=== PATIENT | female | born 1975 | race Caucasian/White ===

== ENCOUNTER 2020-05-20 14:55 | Outpatient (CLI) | payer OTHER, SELFPAY ==
[2020-05-20 15:35] LABS: Hematocrit 34.8 % (37.0-47.0); Hemoglobin 11.5 g/dL (12.0-15.0)
== END 2020-05-20 14:56 | disposition home or self-care (01) ==
LOC: ANHSURGERY 14:57
PROVIDERS: Visit Provider Obstetrics & Gynecology
DX: N92.0 Excessive and frequent menstruation with regular cycle (principal)
CPT/HCPCS: 36415; 85014; 85018

== ENCOUNTER 2020-05-25 01:14 | Outpatient (CLI) | payer OTHER, SELFPAY ==
[2020-05-25 18:19] LABS: SARS-CoV-2 RNA PCR Negative
== END 2020-05-25 01:15 | disposition home or self-care (01) ==
LOC: ANHCOVIDDT 01:14
PROVIDERS: Visit Provider Obstetrics & Gynecology
DX: Z01.812 Encounter for preprocedural laboratory examination (principal); Z20.828 Contact with and (suspected) exposure to other viral communicable diseases
CPT/HCPCS: 87635; C9803; U0003

== ENCOUNTER 2020-05-27 01:31 | Day surgery (SDC) | payer OTHER, SELFPAY ==
[2020-05-18 15:42] VITALS: BMI 27.9
--- NOTE | 2020-05-25 08:03 | PM.IMHP ---
H&P: HPI History of Present Illness Date/Time: 05/25/20 08:03 Chief complaint: Heavy Bleeding Narrative: Brittani Rashid is a 44 year old female is admitted for hysteroscopy, dilatation curettage, and endometrial ablation. Or she has been on oral contraceptive which has not helped her heaviness to periods. She opts for ablation. Risks and benefits reviewed Review of Systems Review of Systems: All systems reviewed & are unremarkable except as noted in HPI and below PMFSH Social History Social History Smoking status: Never smoker Alcohol intake: current Drinks per week: 3 Spiritual care concerns: No Meds Home Medications and Allergies Home Medications Medication Instructions Recorded Confirmed Type norethin-e.estradiol triphasic 1 tablet PO QPM 05/18/20 05/18/20 History [Pirmella] Allergies Allergy/AdvReac Type Severity Reaction Status Date / Time No Known Allergies Allergy Mild Unverified 05/18/20 15:43 Exam Const: General: no acute distress Eyes: General: appearance normal, both eyes and all related structures Neck: Neck: supple and no JVD Thyroid: thyroid normal Resp: Effort & Inspection: normal respiratory effort Auscultation: clear to auscultation bilaterally Cardio: Rate: regular rate Rhythm: regular rhythm GI: Inspection: non-distended GI Palp: Yes Soft to palpation, No Tenderness to palpation present (GI) and No Guarding due to palpation present (GI) Auscultation: normal bowel sounds : General: Yes bladder normal to palpation External Female Exam: normal external appearance Speculum Exam - Vagina: normal vaginal discharge and No vaginal bleeding Speculum Exam - Cervix: nontender Bimanual exam- vagina & uterus: bladder normal to palpation and No Cervical tenderness present OB/external & speculum: No vaginal bleeding Skin: General skin exam: no rashes or lesions noted Extrem: General: normal to inspection and no edema Psych: Mental Status: mental status grossly normal Affect: normal affect Assessment and Plan Additional Plan impression: Excessive heavy bleeding refractory to medical therapy Plan: Hysteroscopy/dilatation curettage / ablation
--- NOTE | 2020-05-26 12:06 | P.PNAN_ITS ---
Anes - Initial Pre Proc Eval Procedure: Operation Date: 05/27/20 10:30 Proposed Procedures p Hysteroscopy, Dilation And Curettage, Radha Endometrial Ablation - Santhosh Escamilla MD Date/Time: 05/26/20 12:06 Surgeon: Santhosh Escamilla MD Pre Op Diagnosis: Heavy Bleeding Patient Data Age: 44 Gender: F Height: 1.65 m Weight: 76.2 kg Allergies Allergy/AdvReac Type Severity Reaction Status Date / Time No Known Allergies Allergy Mild Unverified 05/27/20 09:04 Home Medications Medication Instructions Recorded Confirmed Type norethin-e.estradiol triphasic 1 tablet PO QPM 05/18/20 05/18/20 History [Pirmella] hydrocodone-acetaminophen [[place]] 1 tablet PO Q4H PRN #30 tablet 05/27/20 Rx Patient hx anesthesia problems: none Family hx anesthesia problems: none [facility] Surgical History Surgical History (Updated 05/26/20 @ 12:06 by Rudy Michel DO) History of appendectomy History of hernia repair Hx of LASIK Social History Social History Smoking status: Never smoker Alcohol intake: current Drinks per week: 3 Spiritual care concerns: No Anes - Eval Final PreProcedure Day of Procedure 05/26/20 12:06 Patient weight: overweight Heart: regular rate and rhythm Lungs: clear to auscultation and normal air movement Airway: Mallampati scale class II Neurological: alert and oriented Last oral intake: >/= 8 hours ASA classification: I Emergent: no Anesthetic plan: proceed Anesthesia type and monitoring: general GIVS and standard monitoring Informed Consent: The patient's anesthetic plan and its attendant risks and benefits were discussed with the patient/family/POA. Questions were solicited and answers provided to the satisfaction of the patient/family/POA.
--- NOTE | 2020-05-27 06:21 | WPDHPUPDATE1 ---
History and Physical Update Update Date/Time: 05/27/20 06:21 History and Physical has been reviewed, including an updated exam of the patient. There are NO changes in the patient's condition. Risks, benefits, and alternatives have been discussed and questions answered. Patient agrees to proceed with procedure.
[2020-05-27] MEDS: ACETAMINOPHEN 500 MG TABLET 1000 MG PO (08:50)
[2020-05-27] MEDS: LACTATED RINGERS 1,000 ML 30 ML IV CONT (08:55)
[2020-05-27 09:10] VITALS: BP 138/94; PULSE 87; RESP 16; TEMP 36.6; O2SAT 100
--- NOTE | 2020-05-27 10:30 | PM.PROC ---
Procedure Note - Detailed Date of procedure: 05/27/20 Pre-op diagnosis: Heavy Bleeding Surgeon: Santhosh Escamilla MD Postop diagnosis: Heavy bleeding and uterine fibroids Procedure: Hysteroscopy / dilatation curettage/ endometrial ablation EBL: 5Cc anesthesia: IV sedation and local Complications: None Findings: Uterus sounded to 10cm irregularly shaped endometrial canal with suspected fibroid Description of procedure: Patient was prepped draped in the normal sterile fashion and placed in the dorsal lithotomy position. Under excellent IV sedation weighted speculum was placed in posterior fornix of vagina. Anterior lip of the cervix was grasped with a single-tooth tenaculum. 2.5cc of xylocaine anesthesia was placed at 2, 4, 8, 10:00 a.m. of the cervix. The uterus sounded to 10cm. Serial dilatation with fragmented dilators performed followed by passage of the 5mm visualizing hysteroscope. Normal saline was used as visualizing medium. Irregularly shaped anterior portion of the uterus was seen consistent with a fibroid on the muscle. The uterus was then scraped over the entire 360? until a good grating sound was heard. The samir instrument was placed in the uterus and burned for 120seconds. The instruments removed and blood loss was estimated at5cc. All sponge, needle, instrument counts were correct. There were no immediate complications
[2020-05-27 10:34] VITALS: BP 160/94; PULSE 79; RESP 16; O2SAT 100
[2020-05-27 11:00] VITALS: BP 142/91; PULSE 67; RESP 14
[2020-05-27 11:20] VITALS: BP 134/77; PULSE 66; RESP 14
== END 2020-05-27 11:25 | disposition home or self-care (01) ==
PROVIDERS: Visit Provider Obstetrics & Gynecology
PROC: 0U5B8ZZ Destruction of Endometrium, Via Natural or Artificial Opening Endoscopic (ICD-10-PCS; CPT 58563; principal; 2020-05-27 10:30)
DX: N92.0 Excessive and frequent menstruation with regular cycle (principal)
CPT/HCPCS: 58563; 88305; A9270; J2250; J2405; J2704; J3010; J7030; J7120

== ENCOUNTER → 2021-02-07 01:11 | Outpatient (CLI) | payer OTHER, SELFPAY ==
[2021-02-07 18:55] LABS: SARS-CoV-2 RNA PCR Negative
== END ==
PROVIDERS: Visit Provider Obstetrics & Gynecology
DX: Z01.812 Encounter for preprocedural laboratory examination (principal); Z20.822 Contact with and (suspected) exposure to COVID-19
CPT/HCPCS: C9803; U0003; U0005

== ENCOUNTER 2021-02-07 08:28 | Outpatient (CLI) | payer OTHER, SELFPAY ==
[2021-02-07 09:14] LABS: Basophils Percent Auto 0.2 % (0.2-1.2); Eosinophils Absolute Auto 0.2 K/mm3 (0-0.3); Eosinophils Percent Auto 2.7 % (0-4.4); Hematocrit 36.2 % (37.0-47.0); Hemoglobin 11.9 g/dL (12.0-15.0); Immature Granulocyte Absolute 0.02 K/mm3 (0.00-0.031); Immature Granulocyte Percent A 0.3 % (0-0.5); Lymphocytes Absolute Auto 1.23 K/mm3 (0.9-3.2); Lymphocytes Percent Auto 18.5 % (18.3-44.2); Mean Corpuscular HGB Conc 32.9 g/dl (32-36); Mean Corpuscular Hemoglobin 30.1 pg (26-34); Mean Corpuscular Volume 91.6 fl (80-100); Mean Platelet Volume 8.8 fl (7.4-10.4); Monocytes Absolute Auto 0.4 K/mm3 (0.1-0.6); Monocytes Percent Auto 5.3 % (2.6-8.5); Neutrophils Absolute Auto 4.9 K/mm3 (1.3-6.7); Platelet Count Result 440 k/mm3 (150-375); Red Blood Count 3.95 M/mm3 (4.2-5.4); Red Cell Distribution Width 12.8 % (11.5-14.5); White Blood Count 6.7 K/mm3 (4.5-10.0)
== END 2021-02-07 08:29 | disposition home or self-care (01) ==
PROVIDERS: Visit Provider Obstetrics & Gynecology
DX: N85.2 Hypertrophy of uterus (principal); Z01.818 Encounter for other preprocedural examination
CPT/HCPCS: 36415; 85025; 86850; 86900; 86901

== ENCOUNTER 2021-02-10 06:04 | Day surgery (SDC) | payer OTHER, SELFPAY ==
[2021-02-02 14:51] VITALS: BMI 28.3
--- NOTE | 2021-02-07 12:55 | PM.IMHP ---
H&P: HPI History of Present Illness Date/Time: 02/07/21 12:55 45-year-old 3 para 3 status post uterine ablation admitted for hysterectomy and bilateral salpingectomy. This patient has a history of very heavy periods with known fibroids. She has also had multiple abnormal Paps and has asked for definitive therapy. Risks and benefits reviewed including but not exclusive of , aspiration pneumonia, bleeding, transfusion, perforation injury to bowel, bladder, ureters, or other internal organs with need for open laparotomy. She received the [employer] handout entitled hysterectomy as well as advance she handout. She had all questions answered and asked to proceed Chief Complaint: pelvic pain / enlarged uterus / failed ablation / abnormal Paps Review of Systems Review of Systems: All systems reviewed & are unremarkable except as noted in HPI and below [facility] Surgical History Surgical History History of appendectomy History of hernia repair Hx of LASIK Social History Social History Smoking status: Never smoker Alcohol intake: current Drinks per week: 4 Substance use: never Substance use type: does not use Spiritual care concerns: No Meds Home Medications and Allergies Home Medications Medication Instructions Recorded Confirmed Type norethin-e.estradiol triphasic 1 tablet PO HS 02/02/21 02/02/21 History [Pirmella] Allergies Allergy/AdvReac Type Severity Reaction Status Date / Time No Known Allergies Allergy Mild Unverified 02/02/21 14:50 Exam Const: General: no acute distress Eyes: General: appearance normal, both eyes and all related structures Neck: Neck: supple and no JVD Thyroid: thyroid normal Resp: Effort & Inspection: normal respiratory effort Auscultation: clear to auscultation bilaterally Cardio: Rate: regular rate Rhythm: regular rhythm GI: Inspection: non-distended GI Palp: Yes Soft to palpation, No Tenderness to palpation present (GI) and No Guarding due to palpation present (GI) Auscultation: normal bowel sounds : External Female Exam: normal external appearance Speculum Exam - Vagina: normal appearance of the vagina Speculum Exam - Cervix: Cervical os closed Bimanual exam- vagina & uterus: enlarged and Uterine tenderness Bimanual Exam- Adnexa, other: normal adnexae Skin: General skin exam: no rashes or lesions noted Extrem: General: normal to inspection and no edema Psych: Mental Status: mental status grossly normal Affect: normal affect Assessment and Plan Additional Plan impression: Symptomatic uterine fibroids with resultant heavy bleeding and abnormal Paps and dysmenorrhea refractory to medical therapy Plan: Robotic total vaginal hysterectomy and bilateral salpingectomy
[2021-02-10] VITALS (10 sets, daily range): BP systolic 116–151; BP diastolic 69–93; PULSE 62–95; RESP 14–16; TEMP 36.4–37.4; O2SAT 94–100; BMI 29.0
--- NOTE | 2021-02-10 05:56 | WPDHPUPDATE1 ---
History and Physical Update Update Date/Time: 02/10/21 05:56 History and Physical has been reviewed, including an updated exam of the patient. There are NO changes in the patient's condition. Risks, benefits, and alternatives have been discussed and questions answered. Patient agrees to proceed with procedure.
[2021-02-10] MEDS: ACETAMINOPHEN 500 MG TABLET 1000 MG PO (06:30)
[2021-02-10] MEDS: LACTATED RINGERS 1,000 ML 30 ML IV CONT ×2 (06:30→08:50)
[2021-02-10] MEDS: KETOROLAC 15 MG/ML VIAL (*BKC) IV PUSH (06:41)
--- NOTE | 2021-02-10 06:49 | WPDANESEPPF ---
Anes - Initial Pre Proc Eval Procedure: Operation Date: 02/10/21 07:30 Proposed Procedures p Robotic Assisted Total Vaginal Hysterectomy with Bilateral Salpingectomy - Santhosh Escamilla MD Date/Time: 02/10/21 06:49 Surgeon: Santhosh Escamilla MD Pre Op Diagnosis: pain, enlarge uterus,firboids,hx of abn pap,bleedi Patient Data Age: 45 Gender: F Height: 5 ft 5 in Weight: 77.1 kg Allergies Allergy/AdvReac Type Severity Reaction Status Date / Time No Known Allergies Allergy Mild Unverified 02/10/21 06:28 Home Medications Medication Instructions Recorded Confirmed Type norethin-e.estradiol triphasic 1 tablet PO HS 02/02/21 02/10/21 History [Pirmella] hydrocodone-acetaminophen 1 tablet PO Q4H PRN #30 tablet 02/10/21 Rx Patient hx anesthesia problems: none Family hx anesthesia problems: none PMFSH Surgical History Surgical History History of appendectomy History of hernia repair Hx of LASIK Social History Social History Smoking status: Never smoker Alcohol intake: current Drinks per week: 4 Substance use: never Substance use type: does not use Living arrangements: with family Spiritual care concerns: No Anes - Eval Final PreProcedure Day of Procedure 02/10/21 06:49 Patient weight: overweight Heart: regular rate and rhythm Lungs: clear to auscultation Airway: Mallampati scale class II Neurological: alert and oriented Last oral intake: >/= 8 hours ASA classification: II Emergent: no Anesthetic plan: proceed Anesthesia type and monitoring: general ETT and standard monitoring Informed Consent: The patient's anesthetic plan and its attendant risks and benefits were discussed with the patient/family/POA. Questions were solicited and answers provided to the satisfaction of the patient/family/POA.
[2021-02-10] MEDS: ceFAZolin 2 GM/D5W 50 ML 2 GM/50 ML BAG IVPB (07:38)
--- NOTE | 2021-02-10 08:39 | P.OP_ITS ---
Procedure Note - Detailed Date of procedure: 02/10/21 Pre-op diagnosis: pain, enlarge uterus,firboids,hx of abn pap,bleedi Surgeon: Santhosh Escamilla MD Postop diagnosis: Pelvic pain/enlarged uterus/fibroids/abnormal Pap smears/bleeding Procedure: Robotic total vaginal hysterectomy and bilateral salpingectomies Anesthesia: General endotracheal EBL: 5cc Findings: Markedly enlarged fibroid uterus. Normal-appearing ovaries and tubes bilaterally. Complications: None Description of procedure: The patient was prepped and draped in normal sterile fashion and placed in the dorsal lithotomy position. Under excellent general trach anesthesia weighted speculum placed in posterior fornix vagina. Anterior lip of the cervix grasped with a single-tooth tenaculum and the uterus sounded to 10cm. Serial dilatation with fragmented dilators performed followed by passage of a 8. SHARON and the 3. And a half cold cup. A 16 [place] catheter was placed in the bladder and drained of clear urine. The weighted speculum was removed. The gloves were changed. A supraumbilical incision made the Veress needle passed in the abdomen. The abdomen filled with CO2 gas 15 minutes was mercury. The 8mm trocar advanced in the abdomen. The downside visualized no injury seen. The gas reattached the patient placed in Trendelenburg. Right and left lateral quadrant incisions were made in the 8mm trocars advanced under direct visualization. Mesh could see be seen at the right upper quadrant and decision was made for the promotions assistant sales marketing port to be placed in the left upper quadrant. An 8mm trocar was advanced under direct visualization assuring no injury. The robot was docked. Attention was turned to the console. The left round ligament was grasped, burned, cut. Anteriorly a bladder flap was formed by sharply dissecting the bladder away from the uterus caudally to the opposite round ligament was clamped, burned, cut. Uterus was large and irregular. The left fallopian tube was then sharply dissected away from the ovarian complex in left attached to the uterus. This was repeated on the contralateral side to remove the right ovary. The left utero-ovarian ligament was skeletonized next. This was clamped, burned, cut. This was brought to the level of the previously cut round ligament. In like fashion conserving the right ovary the utero-ovarian ligament was clamped, burned, cut and brought to the level of the previously cut round ligament. The cardinal and broad ligaments on the left were then serially skeletonized and brought down laterally along each edge of the uterus and cervix into the uterine vessels could be seen on the left. These were noted to be large and tortuous in these were individually clamped, burned, cut. In like fashion the cardinal and broad ligaments on the right were serially skeletonized. These were brought down the lateral edge of the uterus and cervix clamping burning and cutting into the uterine vessels could be seen on the right. These were then individually clamped, burned, cut. Excellent blanching of the uterus was noted a colpotomy incision was made in the cervix uterus and tubes removed through the vagina. Blood loss estimated at25cc. The vagina was closed with continuous running 0V lock from lateral edge to lateral edge and back to the midline. The pedicles all appeared dry and the raw surface areas prepped cold with [place] term. The gas was removed from the abdomen after robot was undocked. The trocars were removed and the incisions closed with 4 O Monocryl and glue. The instruments removed from the vagina and the patient awakened. All sponge, needle, instrument counts were correct. There were no immediate complications
--- NOTE | 2021-02-10 10:07 | PC.NURSE ---
This patient, Brittani Rashid, was received from PACU per bed to room 278. Patient/family oriented to unit policies and routines
[2021-02-10] MEDS: DEXTROSE 5%/LACTATED RINGERS 1,000 ML 125 ML IV CONT (11:15)
[2021-02-10] MEDS: KETOROLAC 30 MG/ML VIAL (*BKC) IV PUSH (11:15)
[2021-02-10] MEDS: HYDROcodone/acetaminophen (*CRX) 5-325 MG TABLET 1 TAB PO ×2 (14:22→19:31)
[2021-02-10] MEDS: IBUPROFEN 600 MG TABLET PO (19:31)
== END 2021-02-10 19:55 | disposition home or self-care (01) ==
LOC: ANHSURGERY 08:09 → ANHOB2 10:03
PROVIDERS: Visit Provider Obstetrics & Gynecology
PROC: (CPT 58552; principal; 2021-02-10 07:30)
DX: D25.1 Intramural leiomyoma of uterus (principal); D25.2 Subserosal leiomyoma of uterus; D25.0 Submucous leiomyoma of uterus; R10.2 Pelvic and perineal pain; N92.0 Excessive and frequent menstruation with regular cycle
CPT/HCPCS: 58552; S2900; 36415; 85025; 86850; 86900; 86901; 88307; 99199; A9270; C9803; J0690; J1100; J1170; J1885; J2250; J2405; J2704; J2710; J3010; J7030; J7120; J7121; U0003; U0005